=== PATIENT | female | born 1970 | race Caucasian/White ===

== ENCOUNTER 2016-09-07 07:47 | Day surgery (SDC) | payer OTHER ==
[~2016-09-07] VITALS: Ht 170.2 cm; Wt 66.0 kg
[~2016-09-07 07:47] MED LIST: BUPRTAB51 PO; CEFAZOLIN 1000MG/55 ML D5W IV SCH; CLC100 PO; CLON1TAB3 PO; METH10TA2 PO; PYRUNK; SODIUM CHLORIDE 0.9% 1000ML 1,000 ML IV SCH; SYN25 PO; TRAZ100T29 PO
--- NOTE | 2016-09-07 08:36 | History and Physical ---
History & Physical Date Sep 07, 2016. (Roula Liao, VILMA) Chief Complaint poor IV access (Roula Liao PA-C) History of Present Illness The patient is a 46 year old female with hx of hypothyroidism and RA, seen today for insertion of infusaport for IV access. Pt states she requires medication administration as well as frequent blood draws, and they always have significant problems with access. Discussed with her PCP, who advised her she could consider infusaport for access if she wished. Pt denies OROZCO, fever, chills , chest pain, SOB, abd pain, N/V, rest pain, claudication, other complaints. Pt is nonsmoker. (Roula Liao PA-C) Allergies Coded Allergies: Haloperidol (Verified Allergy, Severe, tongue and face swelling, 09/07/16) Tramadol (Verified Allergy, Severe, TROUBLE BREATHING, 09/07/16) Morphine (Verified Allergy, Intermediate, hives, 09/07/16) Needs to have benadryl if she has this Sulfa Drugs (Verified Allergy, Unknown, WELTS/HIVES, 09/07/16) Ketorolac (Verified Adverse Reaction, Severe, TROUBLE BREATHING, 09/07/16) Aspirin (Verified Adverse Reaction, Unknown, GI BLEED, 09/07/16) Quinolones (Verified Adverse Reaction, Unknown, N&V, 09/07/16) Tetracycline (Verified Adverse Reaction, Unknown, SEVERE N&V, 09/07/16) Home Medications Scheduled Clonazepam (Klonopin), 0.5 MG PO BID Levothyroxine (Synthroid *), 0.5 MG PO DAILY Trazodone Hcl (Trazodone), 150 MG PO HS [wellbutrin], 100 MG PO DAILY Miscellaneous Medications Phenazopyridine (Pyridium Unknown Dose) Surgical / Medical History Hx Cardiac Surgery: No Hx Abdominal Surgery: Yes (LAPROSCOPY,) Hx Cancer Surgery: No Hx Thoracic Surgery: No Hx Urinary Tract Surgery: Yes (TUMOR REMOVED FROM BLADDER) Past Medical/Surgical History: Arthritis, Thyroid Disease (Roula Liao, VILMA) Family History + HTN, thyroid disease in mother, otherwise essentially negative. (Roula Liao PA-C) Social History Smoking Status: Never Smoker Hx Tobacco Use In Past Year?: No Hx Alcohol Use - Type & Amnt: No Hx Substance Use -Type & Amnt: No (Roula Liao PA-C) Review of Systems Constitutional: No chills, No fever, No malaise Skin: No change in color Eyes: No visual changes ENMT: No sore throat Respiratory: No cough, No GUERRA, No hemoptysis, No short of breath Cardiovascular: No chest pain, No palpitations, No syncope, No edema, No intermittent claudication Gastrointestinal: No abdominal pain, No nausea, No vomiting Genitourinary - Female: No dysuria, No hematuria Neurologic: No dizziness, No headache, No lethargy, No numbness, No tingling ( Roula Liao, KARENC) Physical Exam Constitutional: General Apperance: heathly-appearing, well-nourished, well-developed Level of Distress: NAD Ambulation: ambulating normally Psychiatric: Mental Status: active & alert, normal mood, normal affect Orientation: oriented except where noted, to time, to place, to person Memory: recent memory normal, remote memory normal Head: normocephalic, atraumatic Eyes: EOM: EOMI ENMT: normal ENT inspection, hearing grossly normal Neck: supple, trachea midline Lungs: Respiratory effort: no dyspnea Auscultation: breath sounds normal, no wheezing, no rales/crackles Cardiovascular: Apical Impulse: not displaced Heart Auscultation: RRR, no murmurs, no rubs Peripheral Pulses: Pulses: full and equal, in all extremities except if noted Bruits: none appreciated Carotid Pulse: normal on the left, normal on the right Brachial Pulses: normal on the left, normal on the right Radial Pulse: normal on the left, normal on the right Femoral Pulse: normal on the left, normal on the right Posterior Tibialis Pulse: normal on the left, normal on the right Dorsalis Pedis Pulse: normal on the left, normal on the right Abdomen: Bowel Sounds: normal Inspection & Palpation: soft, non-distended, no tenderness, guarding & rebound Musculoskeletal: normal strength (5/5 throughout), normal tone Extremities: Upper Right: no cyanosis, no edema, no varicosities Upper Left: no cyanosis, no edema, no varicosities Lower Right: no cyanosis, no edema, no varicosities Neurologic: Cranial Nerves: grossly intact Sensation: grossly intact (Roula Liao, PA-C) Assessment and Plan ASSESSMENT and PLAN: Poor IV access Rheumatoid Arthritis Pt for Infusaport insertion today in OR by Dr Grant. Procedure, risks, benefits, and alternatives discussed with pt, she expresses understanding and agreement. (Roula Liao, ANU-C) Patient was seen, examined, and chart reviewed. Agree with exam and treatment plan of the Vascular PA. I have discussed the risks options and benefits of the procedure with the patient. The patient understands the risks options and benefits and agrees to the procedure. (Jos Grant M.D.)
[2016-09-07 08:44] VITALS: BP 100/61; PULSE 75; TEMP 36.8; O2SAT 96; Ht 170.2 cm; Wt 66.0 kg
[2016-09-07] MEDS ORDERED: wellbutrin PO (08:55)
[2016-09-07] MEDS ORDERED: MONT1TAB3 PO (08:59)
[2016-09-07] MEDS ORDERED: CLR10 PO (08:59)
[2016-09-07] MEDS ORDERED: HYDR200T5 PO (08:59)
[2016-09-07] MEDS ORDERED: PLEC3TAB PO (08:59)
[2016-09-07] MEDS ORDERED: OXYC1TAB3 PO (08:59)
[2016-09-07] MEDS ORDERED: OXYC-292 PO (08:59)
--- NOTE | 2016-09-07 09:00 | Procedure Note ---
Pre-Mod Sedation Assessment General Date of Moderate Sedation: Sep 07, 2016. Vital Signs: Vital Signs Past 12 Hours Date Time Temp Pulse Resp B/P (MAP) Pulse Ox O2 Delivery O2 Flow Rate FiO2 09/07/16 08:44 36.8 75 18 100/61 (74) 96 Room Air Pre-Sedation Airway Assessment Smoking Status: Never Smoker Mallampati Classification: Class I ASA Classification: Class III Notes The planned sedation has been discussed with the patient and consent obtained. I have identified the patient, determined the appropriateness of sedation and have assessed the patient immediately prior to the procedure. All medicine(s) and interventions are by my order.
[2016-09-07 09:11] VITALS: BP 100/61; PULSE 75; TEMP 36.8; O2SAT 96
[2016-09-07] MEDS ORDERED: LIDOCAINE HCL 1% 20 ML VIAL ONE (09:11)
[2016-09-07] MEDS ORDERED: FENTANYL CITRATE INJ 50 MCG/1 ML 2 ML VIAL ONE ×3 (09:12→11:53)
[2016-09-07] MEDS ORDERED: MIDAZOLAM HCL 1 MG/ML 2ML VIAL ONE ×2 (09:12→11:04)
[2016-09-07] MEDS ORDERED: BUPIVACAINE/EPINEPHRINE 0.5% MPF 1:200,000 30 ML VIAL ONE (09:13)
[2016-09-07 10:05] LABS: BASO % 0.2 %; BASO ABS # 0.01 K/uL (0-0.2); COMPLETE YES; EOS % 2.5 %; HEMATOCRIT 33.4 % (37-47); IG% 0.2 %; LYMPH % 35.6 %; LYMPH ABS # 1.54 K/uL (1.2-3.4); MEAN CELL VOLUME 80.7 fL (80-100); MEAN CORPUSCULAR HEMOGLOBIN 25.6 pg (25-34); MEAN CORPUSCULAR HGB CONC 31.7 g/dl (32-36); MEAN PLATELET VOLUME 7.9 fL (7.4-10.4); MONO % 8.1 %; NEUT % 53.4 %; PLATELET COUNT 257 K/uL (130-400); RED BLOOD COUNT 4.14 M/uL (4.2-5.4); WHITE BLOOD COUNT 4.32 K/uL (4.8-10.8)
[2016-09-07 10:19] LABS: PARTIAL THROMBOPLASTIN RATIO 1.1; PROTHROMBIN TIME (PATIENT) 10.5 SECONDS (9.0-12.0)
[2016-09-07 10:41] LABS: BUN/CREATININE RATIO 17.4 (10-20); CALCIUM 8.6 mg/dl (8.5-10.1); CREATININE 0.65 mg/dl (0.60-1.20); POTASSIUM 3.6 mmol/L (3.5-5.1)
--- NOTE | 2016-09-07 11:51 | Procedure Note ---
Post-Moderate Sedation Plan General Date of Moderate Sedation Sep 07, 2016. Vital Signs: Vital Signs Past 12 Hours Date Time Temp Pulse Resp B/P (MAP) Pulse Ox O2 Delivery O2 Flow Rate FiO2 09/07/16 09:11 36.8 75 18 100/61 96 Room Air 09/07/16 08:44 36.8 75 18 100/61 (74) 96 Room Air Review - Discharge Plan Post Moderate Sedation Plan: On clinical assessment, the patient appears to have tolerated the conscious sedation without complications. Patient is recovering as anticipated. Patient will continue to be monitored by nursing and may be discharged when conscious sedation discharge criteria are met.
--- NOTE | 2016-09-07 11:53 | [facility] Post Operative Brief Note ---
Immediate Operative Summary Operative Date Sep 07, 2016. Pre-Operative Diagnosis Poor IV access Rheumatoid Arthritis Post-Operative Diagnosis Same Procedure(s) Performed Insertion of Insufaport Right Jugular Approach Ultrasound Localization of Right Jugular Vein FLuoroscopy for Positioning Moderate Sedation [id number] Surgeon Rudy Color Sprayer Surgeon(s) Bernie Monreal Estimated Blood Loss 2 Findings tip in distal SVC Specimens None Anesthesia Local with conscious sedation Complication(s) None Disposition
--- NOTE | 2016-09-07 11:54 | Discharge Instructions ---
Discharge Instructions Date of Service Sep 07, 2016. Visit Reason for Visit: Poor Venous Access Discharge Discharge Diagnosis / Problem: Lack of IV access Discharge Goals Goal(s): Therapeutic intervention Activity Recommendations Activity Limitations: per Instructions/Follow-up section Lifting Limitations: no more than 25 pounds, gradually increase as tolerated Exercise/Sports Limitations: rest today Shower/Bathe: tomorrow Anesthesia . Post Anesthesia Instructions: If you have had General Anesthesia or IV Sedation: * Do not drive today. * Resume driving when surgeon permits. * Do not make important decisions or sign legal documents today. * Call surgeon for: 1. Temperature elevations greater than 101 degrees F. 2. Uncontrollable pain. 3. Excessive bleeding. 4. Persistent nausea and vomiting. 5. Medication intolerance (nausea, vomiting or rash). * For nausea and vomiting use only clear liquids such as: tea, soda, bouillon until nausea subsides, then gradually increase diet as tolerated. * If you have any concerns or questions, call your surgeon's office. If physician is unavailable and it is an emergency, call 911 or go to the nearest emergency room. . Instructions / Follow-Up Instructions / Follow-Up Call [phone] to schedule a follow up appointment if one not already scheduled. SPECIAL CARE INSTRUCTIONS: Medications: * Continue to take your medications as directed. If you have been given a prescription for Plavix, please fill it immediately and take as directed. Incision Care: * Your puncture site may have some bruising and minor swelling for about one week. * You will have a small dressing covering your puncture site. You may remove the dressing after 24 hours and shower. You may let the warm soapy water run over it, but be sure to dry the puncture site well and keep it dry. * DO NOT IMMERSE THE INCISION IN A TUB/POOL/etc. UNTIL HEALED. * Puncture sites should be kept covered with a band-aid until it begins to heal. Restrictions: * Depending on whether you leg or arm was punctured to access the arteries, you will be required to lay flat, hold your arm still, or both, for about 4 hours after the procedure to prevent bleeding. * Limit your activity for the first 48 hours. You may walk and go up and down steps. Avoid excessive bending or movement at the puncture site. Possible Complications: * Excessive Swelling - after blood flow is improved you may notice increased swelling in the lower legs. This is a normal response. This usually depends on the amount of blockages in the leg, how long they have been there prior to your procedure and how much blood flow was restored. Elevating your legs will help to improve this. Please notify our office ([phone] ) if the swelling does not go away after lying in bed overnight. * Infection/Drainage/Bleeding - Drainage or bleeding from the puncture site should be minimal. If you have excessive bleeding or drainage, call our office ([phone]) right away. * Pain - You may experience some mild pain or soreness at your puncture site. If your pain does not improve, please contact our office ([phone]). Call your doctor and seek emergent treatment if you develop: * Temperature above 101 degrees * Any fever or chills * Any redness or purulent drainage from the puncture site * Any new dusky/blue colored toes or feet with coolness or sharp or aching pain. SKIN IRRITATION: * You may experience some redness and/or swelling in the area where radiation was administered. If any skin irritation occurs, please contact your family physician. FOLLOW UP VISIT: Keep any scheduled doctor appointments.I have examined the patient, reviewed the History & Physical and in the interval since the performance of the History & Physical I have noted the following changes of clinical significance: No changes noted Diet Recommendations Recommended Home Diet: resume previous diet Procedures Procedures Performed: Insertion of Insufaport Right Jugular Approach Ultrasound Localization of Right Jugular Vein FLuoroscopy for Positioning Moderate Sedation [id number] Pending Studies Studies pending at discharge: no Medical Emergencies . Who to Call and When: Medical Emergencies: If at any time you feel your situation is an emergency, please call 911 immediately. . Non-Emergent Contact Non-Emergency issues call your: Surgeon . . "Provider Documentation" section prepared by Jos Grant. .
[2016-09-07] MEDS ORDERED: NURSING VERBAL MED ORDER ONE (12:00)
[2016-09-07 12:02] VITALS: BP 109/71; PULSE 75; TEMP 36.6; O2SAT 100
[2016-09-07 12:32] VITALS: BP 106/72; PULSE 79; TEMP 36.7; O2SAT 100
--- NOTE | 2016-10-08 11:04 | DIAGNOSTIC IMAGING REPORT ---
DATE OF PROCEDURE: 09/07/2016 PREOPERATIVE DIAGNOSIS: Difficult IV access. POSTOPERATIVE DIAGNOSIS: Difficult IV access. PROCEDURE: Placement of right IJ [id number]. SURGEON: Dr. Jos Grant. RELAY MECHANIC: Dr. Bernie Monreal. ESTIMATED BLOOD LOSS: 2 mL. CONDITION: Stable. COMPLICATIONS: None. INDICATIONS: Ms. Porter Gomes is a 46-year-old woman with history of hypothyroidism and rheumatoid arthritis. She is a difficult IV access and requires frequent blood draws and intravenous medications. For this reason, she was recommended to undergo placement of an [id number]. The risks, benefits and alternatives were discussed with the patient and she consented to the procedure. DESCRIPTION OF PROCEDURE: The patient was taken to the hybrid OR and placed in the supine position. Her right neck was imaged with ultrasound to assess patency of the right IJ, which appeared to be large and patent. The right neck was prepped and draped in the usual sterile fashion. Sedation was administered. She received a total of 44 minutes of conscious sedation. Safety timeout was performed and the patient, procedure and sidedness correctly identified. Local anesthesia was used to anesthetize the skin on the infraclavicular region where we would create our port pocket and then used ultrasound to again assess the right IJ. This was accessed with an 18-gauge access needle and under ultrasound guidance. A guidewire was placed through the needle. We then turned our attention to the port. A longitudinal incision approximately 4 cm was made several fingerbreadths below the right clavicle. Electrocautery was used to create a pocket for the port. Local anesthesia was used to anesthetize this area of the tract. The port was tunneled from the infraclavicular incision to the IJ access site. A peelaway sheath was placed over the wire into the SVC. The wire was removed and the catheter placed through the peel-away sheath and the peel-away sheath removed. The catheter was cut to length and connected to the port. The port was sutured to the chest wall with 2 Prolene sutures. Subcutaneous tissues were reapproximated with 3-0 Vicryl. Subcutaneous tissues overlying the skin overlying the IJ access site and port incision was reapproximated with 4-0 Vicryl in a running subcuticular fashion. The port was accessed and easily aspirated and flushed. It was instilled with 5 mL of heparin. Dermabond skin glue was applied overlying the skin incisions. The patient was transferred to the PACU in stable condition. She tolerated the procedure well. Dr. Jos Grant was present for the entire procedure. I, Dr. Grant was present and scrubbed for the entire procedure. VALERIE
--- NOTE | 2016-10-18 10:35 | [facility] Operative Report ---
Operative Report Operative Date Oct 18, 2016. Pre-Operative Diagnosis Poor IV access Rheumatoid Arthritis Post-Operative Diagnosis Same Procedure(s) Performed Insertion of Insufaport Right Jugular Approach Ultrasound Localization of Right Jugular Vein FLuoroscopy for Positioning Moderate Sedation [id number] Surgeon Rudy Food Broker Surgeon(s) Bernie Monreal Estimated Blood Loss 2 Findings tip in distal SVC Specimens None Anesthesia Local with conscious sedation Complication(s) None Disposition Indications Patient has a lack of venous access. Infusaport was recommended. I have discussed the risks options and benefits of the procedure with the patient. The patient understands the risks options and benefits and agrees to the procedure. Description of Procedure Patient was takent to the angio suite and placed in the supine position. The right side of the neck and chest wall were prepped and draped in a sterile manner. Local anesthesia was then administered to the appropriate areas of the neck and chest wall. A transverse incision was made below the clavicle on the chest wall and an inferior pocket was make. Bleeding was controlled using cautery. Ultrasound was then used to locate the right internal jugular vein. The vein compressed easily, had no filing defects, and was patent. The vein was then punctured under direct ultrasound imaging. A guidewire was then passed centrally under fluoroscopic imaging. The port catheter was then passed from the pocket incision to the puncture site in the neck using the tunneling device. The peel away sheath was inserted. The catheter was then beveled at the tip and inserted through the peel away sheath. The tip was then positioned in the distal SCV. It was then attached to the port and the catheter clamp applied. The port was then placed in the pocket and sutured to the chest fascia using prolene suture. The puncture site was then closed using a 4-0 Vicryl subcuticular suture. The chest incision was closed using a 3-0 Vicryl suture for the subcutaneous layer and a 4-0 Vicryl subcuticular stitch for the skin layer. Dermabond was used for a dressing on the puncture site and the incision. The port aspirated and flushed easily and was then flushed with heparinized saline. The patient left the angio suite in good condition and tolerated the procedure well. I attest to the content of the Intraoperative Record and any orders documented therein. Any exceptions are noted below.
== END 2016-09-07 12:50 | disposition home or self-care (01) ==
LOC: C.ACU 07:47
PROVIDERS: ATTEND Surgery Vascular Surgery
DX: E03.9 Hypothyroidism, unspecified (principal); M06.9 Rheumatoid arthritis, unspecified; Z88.5 Allergy status to narcotic agent; Z88.2 Allergy status to sulfonamides; Z88.1 Allergy status to other antibiotic agents; Z79.899 Other long term (current) drug therapy; Z98.890 Other specified postprocedural states